=== PATIENT | male | born 1990 ===

== ENCOUNTER → 2020-10-12 14:40 | Outpatient (CLI) | payer OTHER | END | disposition home or self-care (01) | LOC: LAB 14:40 | PROVIDERS: ATTEND Emergency Medicine Pediatric Emergency Medicine | DX: Z03.818 Encounter for observation for suspected exposure to other biological agents ruled out (principal) ==

== ENCOUNTER → 2020-10-19 09:00 | Outpatient (CLI) | payer OTHER | END | disposition home or self-care (01) | LOC: LAB 09:00 | DX: Z20.828 Contact with and (suspected) exposure to other viral communicable diseases (principal) ==